=== PATIENT | female | born 2000 | race Caucasian/White ===

== ENCOUNTER 2025-04-14 07:09 | Day surgery (SDC) | payer OTHER ==
[2025-04-12 09:04] VITALS: BMI 21.4
[2025-04-14] MEDS ORDERED: ONDANSETRON 4 MG/2 ML VIAL IVPUSH PRN (09:18)
[2025-04-14] MEDS ORDERED: ACETAMINOPHEN 1000 MG/100 ML BAG IVPB ONE (09:18)
[2025-04-14] MEDS ORDERED: KETOROLAC TROMETHAMINE 30 MG/1 ML VIAL IVPUSH PRN (09:18)
[2025-04-14] MEDS ORDERED: LACTATED RINGERS SOLUTION 1,000 ML IV SCH (09:30)
[2025-04-14 09:44] VITALS: RESP 20
[2025-04-14] MEDS ORDERED: MIDAZOLAM HCL 2 MG/2 ML SINGLE DOSE VIAL ONE (12:17)
[2025-04-14] MEDS ORDERED: LIDOCAINE 1%/EPI 1:100000 (20 ML MULTI DOSE VIAL) ONE (12:27)
[2025-04-14] MEDS ORDERED: PROPOFOL 20 ML ONE ×2 (12:49→13:30)
[2025-04-14] MEDS ORDERED: DEXAMETHASONE SOD PHOSPHATE 4 MG/1 ML VIAL ONE (13:00)
[2025-04-14] MEDS ORDERED: ONDANSETRON 4 MG/2 ML VIAL ONE (13:00)
[2025-04-14] MEDS: ceFAZolin SODIUM 1 GM VIAL IVPB ONE (13:06)
[2025-04-14] MEDS: LIDOCAINE 1%/EPI 1:100000 (50 ML MULTI DOSE VIAL) INF ONE (13:10)
[2025-04-14 18:52] VITALS: TEMP 97.9
[2025-04-14 18:57] VITALS: BP 112/67; PULSE 70
== END 2025-04-14 15:27 | disposition home or self-care (01) ==
LOC: JASU-SURG 07:09
PROVIDERS: ATTEND Obstetrics & Gynecology Obstetrics
PROC: 0UBC7ZX Excision of Cervix, Via Natural or Artificial Opening, Diagnostic (ICD-10-PCS; principal; 2025-04-14 11:30)
DX: D06.9 Carcinoma in situ of cervix, unspecified (principal)
CPT/HCPCS: 88305-TC; 88307-TC; 88341-TC; 88342-TC